=== PATIENT | female | born 1965 | race Two or more races ===

== ENCOUNTER 2023-01-27 13:49 | Inpatient (IN) | payer MEDICAID, OTHER ==
[~2023-01-27] VITALS: Ht 165.1 cm; Wt 86.0 kg
[2023-01-27] MEDS ORDERED: ONDANSETRON HCL 4 MG/2 ML VIAL IV ONE ×2 (14:00→16:00)
[2023-01-27] MEDS ORDERED: SODIUM CHLORIDE 0.9% 1,000 ML IV ONE (14:00)
[2023-01-27] MEDS ORDERED: LORazepam 2MG/ML-1ML VIAL IV ONE (14:15)
[2023-01-27 14:34] LABS: Basophils # (auto) 0 10 ^3/uL (0-0.2); Basophils % (auto) 0.2 % (0.0-2.0); Eosinophils # (auto) 0 10 ^3/uL (0-0.8); Eosinophils % (auto) 0.1 % (0.0-7.0); Hematocrit 38.1 % (36.0-46.0); Hemoglobin 12.3 g/dL (12.2-16.2); Lymphocytes # (auto) 2.2 10 ^3/uL (0.4-5.4); Lymphocytes % (auto) 14.6 % (10.0-50.0); Mean Corpuscular Hgb Conc. 32.3 g/dL (32.0-36.0); Mean Corpuscular Volume 86.7 fL (80.0-100.0); Monocytes # (auto) 0.4 10 ^3/uL (0-1.3); Monocytes % (auto) 2.6 % (0.0-12.0); Neutrophils # (auto) 12.6 10 ^3/uL (1.6-8.6); Neutrophils % (auto) 82.5 % (37.0-80.0); Red Cell Distribution Width 14.7 % (11.8-14.3); White Blood Cell 15.4 10^3/uL (4.4-10.8)
[2023-01-27 14:39] VITALS: PULSE 105; RESP 20; O2SAT 100
[2023-01-27 14:57] LABS: Alanine Aminotransferase 13 U/L (7-40); Albumin 4.7 g/dL (3.2-4.8); Alkaline Phosphatase 138 U/L (46-116); Anion Gap 12.4 (5-15); Aspartate Aminotransferase 30 U/L (13-40); BUN/Creatinine Ratio 9.8 (10.0-20.0); Bilirubin, Total 0.6 mg/dL (0.2-1.0); Blood Urea Nitrogen 16 mg/dL (9-23); Calcium 11.3 mg/dL (8.7-10.4); Carbon Dioxide 20.6 mmol/L (20-30); Chloride 105 mmol/L (98-107); Glucose 356 mg/dL (74-106); Lipase 47 U/L (12-53); Magnesium 1.9 mg/dL (1.6-2.6); Potassium 3.3 mmol/L (3.5-5.1); Sodium 138 mmol/L (136-145); Total Protein 7.3 g/dL (5.7-8.2)
[2023-01-27] MEDS ORDERED: POTASSIUM CHL 20MEQ/100ML 100 ML IV ONE (16:00)
[2023-01-27] MEDS ORDERED: DEXTROSE (50%) 50ML SYRG IV PRN (17:15)
[2023-01-27] MEDS ORDERED: metroNIDAZOLE 500MG/100ML 100 ML IV ONE (17:15)
[2023-01-27] MEDS ORDERED: HYDROcodone-ACET 5/325MG TAB PO PRN (17:15)
[2023-01-27] MEDS ORDERED: ACETAMINOPHEN 325 MG TAB PO PRN (17:15)
[2023-01-27] MEDS ORDERED: KETOROLAC TROMETH 30 MG/ML 1ML VIAL IV ONE (17:15)
[2023-01-27] MEDS ORDERED: ONDANSETRON HCL 4 MG/2 ML VIAL IV PRN (17:15)
[2023-01-27] MEDS ORDERED: NITROGLYCERIN 0.4 MG SL TAB SL PRN (17:15)
[2023-01-27] MEDS ORDERED: MORPHINE SULFATE INJ 2 MG/ml SYRG IV PRN (17:15)
[2023-01-27] MEDS ORDERED: cefTRIAXone 1GM/50ML D5W 50 ML IV ONE (17:15)
[2023-01-27] MEDS ORDERED: PANTOPRAZOLE 40 MG/10 ML VIAL INJ IV ONE (17:15)
[2023-01-27] MEDS ORDERED: IRBE300T43 PO (17:23)
[2023-01-27] MEDS ORDERED: RIV15T PO (17:23)
[2023-01-27] MEDS ORDERED: AMLO1TAB23 PO (17:23)
[2023-01-27] MEDS ORDERED: ATEN25TA PO (17:23)
[2023-01-27] MEDS ORDERED: METO-517 PO (17:23)
[2023-01-27] MEDS ORDERED: PRAV20TA3 PO (17:23)
[2023-01-27] MEDS ORDERED: diphenhdrAMINE HCL 50 MG/1 ML VL ONE (17:58)
[2023-01-27] MEDS ORDERED: diphenhdrAMINE HCL 50 MG/1 ML VL IV ONE (18:00)
[2023-01-27 19:50] LABS: Urine Bacteria FEW /hpf (None Seen); Urine Blood Negative /uL (Negative); Urine Clarity HAZY (Clear); Urine Color Colorless (Yellow); Urine Protein, UAD Negative (Negative); Urine Urobilinogen Normal (Negative); Urine WBC <1 /hpf (0 - 5)
[2023-01-27 19:51] LABS: Lactic Acid w/Reflex 5.5 mmol/L (0.4-2.0)
[2023-01-27 19:53] LABS: Amphetamine Screen, Urine Neg (NEGATIVE); Barbiturate Scree,Urine Neg (NEGATIVE); Benzodiazephine Screen, Urine Neg (NEGATIVE); Cocaine Screen, Urine Neg (NEGATIVE)
[2023-01-27 19:54] LABS: Cannabinoid Screen, Urine Pos (NEGATIVE); Opiate Scree,Urine Neg (NEGATIVE); Phencyclidine Screen, Urine Neg (NEGATIVE)
[2023-01-27] MEDS: PROMETHAZINE HCL 25 MG/ML 1ML IV PRN (19:56)
[2023-01-27 20:15] VITALS: PULSE 117; RESP 23; O2SAT 98
[2023-01-27] MEDS: SODIUM CHLORIDE 0.9% 1,000 ML IV SCH (20:16)
[2023-01-27] MEDS: MORPHINE SULFATE INJ 2 MG/ml SYRG IV PRN (20:17)
[2023-01-27] MEDS: hydrALAZINE HCL 20 MG/ML VL IV PRN (20:17)
[2023-01-27] MEDS: metroNIDAZOLE 500MG/100ML 100 ML IV SCH (22:00)
[2023-01-27] MEDS ORDERED: TEMAZEPAM 15 MG CAP PO PRN (23:30)
[2023-01-27] MEDS: ACCU-CHEK COMFORT CURVE STRIP VI SCH (23:47)
[2023-01-27] MEDS: InsuLIN REG 1unit/0.01ml Soln (100units/ml) SC SCH (23:49)
[2023-01-28] VITALS (7 sets, daily range): BP systolic 122–175; BP diastolic 76–95; PULSE 63–131; RESP 16–20; TEMP 98.1–98.8; O2SAT 96–100
[2023-01-28] MEDS: SODIUM CHLORIDE 0.9% 1,000 ML IV SCH ×3 (03:15→11:52)
[2023-01-28] MEDS: metroNIDAZOLE 500MG/100ML 100 ML IV SCH ×3 (05:56→22:35)
[2023-01-28 06:45] LABS: Basophils # (auto) 0 10 ^3/uL (0-0.2); Basophils % (auto) 0.1 % (0.0-2.0); Eosinophils # (auto) 0 10 ^3/uL (0-0.8); Hematocrit 38.2 % (36.0-46.0); Hemoglobin 12.1 g/dL (12.2-16.2); Lymphocytes # (auto) 1.5 10 ^3/uL (0.4-5.4); Lymphocytes % (auto) 11.8 % (10.0-50.0); Mean Corpuscular Hemoglobin 27.3 pg (28.0-32.0); Mean Corpuscular Hgb Conc. 31.6 g/dL (32.0-36.0); Mean Corpuscular Volume 86.3 fL (80.0-100.0); Neutrophils % (auto) 80.1 % (37.0-80.0); Nucleated Red Blood Cells % 0.1 %; Red Blood Cells 4.43 10^6/uL (4.0-5.20); Red Cell Distribution Width 14.6 % (11.8-14.3); White Blood Cell 12.4 10^3/uL (4.4-10.8)
[2023-01-28 06:48] LABS: Albumin 4.8 g/dL (3.2-4.8); Alkaline Phosphatase 123 U/L (46-116); Anion Gap 11.6 (5-15); Aspartate Aminotransferase 13 U/L (13-40); BUN/Creatinine Ratio 9.4 (10.0-20.0); Blood Urea Nitrogen 13 mg/dL (9-23); Calcium 10.8 mg/dL (8.7-10.4); Carbon Dioxide 23.4 mmol/L (20-30); Chloride 104 mmol/L (98-107); Glucose 226 mg/dL (74-106); Potassium 3.6 mmol/L (3.5-5.1); Sodium 139 mmol/L (136-145); Total Protein 7.5 g/dL (5.7-8.2)
[2023-01-28] MEDS: ACCU-CHEK COMFORT CURVE STRIP VI SCH ×4 (06:56→21:48)
[2023-01-28 06:57] LABS: Alanine Aminotransferase < 9 U/L (7-40)
[2023-01-28] MEDS: InsuLIN REG 1unit/0.01ml Soln (100units/ml) SC SCH ×3 (06:57→18:25)
[2023-01-28 07:28] LABS: Bilirubin, Total 0.7 mg/dL (0.2-1.0)
[2023-01-28] MEDS ORDERED: cefTRIAXone 1GM/50ML D5W 50 ML IV SCH (09:00)
[2023-01-28] MEDS: PROMETHAZINE HCL 25 MG/ML 1ML IV PRN ×3 (09:13→23:57)
[2023-01-28] MEDS: MORPHINE SULFATE INJ 2 MG/ml SYRG IV PRN (09:14)
[2023-01-28] MEDS ORDERED: PROMETHAZINE HCL 25 MG/ML 1ML ONE (09:59)
[2023-01-28] MEDS ORDERED: hydrALAZINE HCL 20 MG/ML VL IV ONE (10:00)
[2023-01-28] MEDS ORDERED: ENOXAPARIN SOD 40 MG/0.4 ML SYRINGE SC SCH (10:00)
[2023-01-28] MEDS: PANTOPRAZOLE 40 MG/10 ML VIAL INJ IV SCH (11:18)
[2023-01-28] MEDS: ENOXAPARIN SOD 80 MG/0.8ML SYRINGE SC SCH (11:19)
[2023-01-28] MEDS: HYDROmorphone HCL 2 MG/ML VL/or syr IV PRN ×3 (11:21→22:35)
[2023-01-28] MEDS: ONDANSETRON HCL 4 MG/2 ML VIAL IV PRN ×2 (17:42→22:42)
[2023-01-28] MEDS: hydrALAZINE HCL 20 MG/ML VL IV PRN ×2 (17:43→22:34)
[2023-01-28] MEDS: SUCRALFATE 1 GM/10 ML ORAL SUSP PO SCH (17:53)
[2023-01-28] MEDS: METOPROLOL TARTRATE 1MG/1ML-5ML VIAL IV PRN (20:24)
[2023-01-28] MEDS ORDERED: ATENOLOL 25 MG TAB PO ONE (20:30)
[2023-01-28] MEDS ORDERED: DEXTROSE (50%) 50ML SYRG IV PRN (20:30)
[2023-01-28] MEDS ORDERED: amLODIPine BESYLATE 5 MG TAB PO ONE (20:30)
[2023-01-28] MEDS ORDERED: InsuLIN REG 1unit/0.01ml Soln (100units/ml) SC SCH ×2 (22:00)
[2023-01-29] VITALS (8 sets, daily range): BP systolic 122–168; BP diastolic 63–98; PULSE 99–136; RESP 19–20; TEMP 97.5–98.2; O2SAT 94–99
[2023-01-29 00:04] LABS: Basophils # (auto) 0 10 ^3/uL (0-0.2); Basophils % (auto) 0.2 % (0.0-2.0); Eosinophils # (auto) 0 10 ^3/uL (0-0.8); Hematocrit 38.4 % (36.0-46.0); Hemoglobin 12.6 g/dL (12.2-16.2); Lymphocytes # (auto) 1.4 10 ^3/uL (0.4-5.4); Lymphocytes % (auto) 8.1 % (10.0-50.0); Mean Corpuscular Hemoglobin 28.4 pg (28.0-32.0); Mean Corpuscular Hgb Conc. 32.7 g/dL (32.0-36.0); Mean Corpuscular Volume 86.8 fL (80.0-100.0); Monocytes # (auto) 0.8 10 ^3/uL (0-1.3); Monocytes % (auto) 4.6 % (0.0-12.0); Neutrophils # (auto) 14.7 10 ^3/uL (1.6-8.6); Neutrophils % (auto) 87.1 % (37.0-80.0); Red Blood Cells 4.42 10^6/uL (4.0-5.20); Red Cell Distribution Width 15.4 % (11.8-14.3); White Blood Cell 16.8 10^3/uL (4.4-10.8)
[2023-01-29] MEDS ORDERED: dilTIAZem 25 MG/5 ML VIAL IV ONE (00:15)
[2023-01-29 00:16] LABS: INR 0.98 (0.9-1.15); Partial Thromboplastin Time 23.1 SEC (24.5-34.5); Prothrombin Time 10.3 sec (9.3-11.8)
[2023-01-29 00:33] LABS: Albumin 4.7 g/dL (3.2-4.8); Alkaline Phosphatase 122 U/L (46-116); Amylase 426 U/L (30-118); Aspartate Aminotransferase 9 U/L (13-40); BUN/Creatinine Ratio 8.5 (10.0-20.0); Blood Urea Nitrogen 13 mg/dL (9-23); Chloride 104 mmol/L (98-107); Glucose 289 mg/dL (74-106); Lipase 216 U/L (12-53); Magnesium 1.7 mg/dL (1.6-2.6); Potassium 3.3 mmol/L (3.5-5.1); Sodium 137 mmol/L (136-145)
[2023-01-29 00:34] LABS: Bilirubin, Total 0.7 mg/dL (0.2-1.0); Total Protein 7.7 g/dL (5.7-8.2)
[2023-01-29 00:38] LABS: Alanine Aminotransferase < 9 U/L (7-40)
[2023-01-29] MEDS: SODIUM CHLORIDE 0.9% 1,000 ML IV SCH ×3 (02:15→18:15)
[2023-01-29 03:05] LABS: Triglycerides 263 mg/dL (< 150)
[2023-01-29] MEDS: METOPROLOL TARTRATE 1MG/1ML-5ML VIAL IV PRN (04:37)
[2023-01-29] MEDS: PROMETHAZINE HCL 25 MG/ML 1ML IV PRN ×3 (04:38→20:41)
[2023-01-29] MEDS: HYDROmorphone HCL 2 MG/ML VL/or syr IV PRN ×5 (05:00→23:44)
[2023-01-29] MEDS: hydrALAZINE HCL 20 MG/ML VL IV PRN ×2 (05:09→14:37)
[2023-01-29] MEDS: ONDANSETRON HCL 4 MG/2 ML VIAL IV PRN ×3 (05:09→23:43)
[2023-01-29] MEDS: SUCRALFATE 1 GM/10 ML ORAL SUSP PO SCH ×3 (05:22→19:42)
[2023-01-29] MEDS: metroNIDAZOLE 500MG/100ML 100 ML IV SCH ×3 (05:22→21:43)
[2023-01-29] MEDS: ACCU-CHEK COMFORT CURVE STRIP VI SCH ×3 (05:59→19:46)
[2023-01-29] MEDS: InsuLIN REG 1unit/0.01ml Soln (100units/ml) SC SCH ×3 (05:59→19:54)
[2023-01-29] MEDS ORDERED: POTASSIUM CHL 20 Meq TABLET PO ONE (09:00)
[2023-01-29] MEDS ORDERED: ATENOLOL 25 MG TAB PO SCH (10:00)
[2023-01-29] MEDS: PANTOPRAZOLE 40 MG/10 ML VIAL INJ IV SCH (10:00)
[2023-01-29 10:16] LABS: Basophils # (auto) 0.1 10 ^3/uL (0-0.2); Basophils % (auto) 0.3 % (0.0-2.0); Eosinophils # (auto) 0 10 ^3/uL (0-0.8); Eosinophils % (auto) 0.1 % (0.0-7.0); Hematocrit 42.5 % (36.0-46.0); Hemoglobin 13.6 g/dL (12.2-16.2); Lymphocytes # (auto) 1.8 10 ^3/uL (0.4-5.4); Lymphocytes % (auto) 8.3 % (10.0-50.0); Mean Corpuscular Hemoglobin 28.4 pg (28.0-32.0); Mean Corpuscular Volume 88.9 fL (80.0-100.0); Monocytes # (auto) 1.5 10 ^3/uL (0-1.3); Monocytes % (auto) 7.3 % (0.0-12.0); Neutrophils # (auto) 17.9 10 ^3/uL (1.6-8.6); Nucleated Red Blood Cells % 0.1 %; Red Blood Cells 4.78 10^6/uL (4.0-5.20); Red Cell Distribution Width 15.3 % (11.8-14.3); White Blood Cell 21.3 10^3/uL (4.4-10.8)
[2023-01-29] MEDS: amLODIPine BESYLATE 5 MG TAB PO SCH (10:55)
[2023-01-29] MEDS: ATENOLOL 25 MG TAB PO SCH ×2 (10:55→21:45)
[2023-01-29] MEDS: ENOXAPARIN SOD 80 MG/0.8ML SYRINGE SC SCH (11:03)
[2023-01-29 11:49] LABS: Albumin 4.8 g/dL (3.2-4.8); Alkaline Phosphatase 111 U/L (46-116); Anion Gap 14.7 (5-15); Aspartate Aminotransferase 11 U/L (13-40); BUN/Creatinine Ratio 11.2 (10.0-20.0); Bilirubin, Total 0.8 mg/dL (0.2-1.0); Blood Urea Nitrogen 20 mg/dL (9-23); Calcium 11.1 mg/dL (8.5-10.1); Carbon Dioxide 21.3 mmol/L (20-30); Chloride 102 mmol/L (98-107); Cholesterol 260 mg/dL (< 200); Glucose 308 mg/dL (74-106); HDL Cholesterol 49 mg/dL (40-59); LDL Cholesterol 160 mg/dL (< 100); Magnesium 1.8 mg/dL (1.6-2.6); Potassium 3.3 mmol/L (3.5-5.1); Sodium 138 mmol/L (136-145); Triglycerides 246 mg/dL (< 150)
[2023-01-29 11:50] LABS: Alanine Aminotransferase < 9 U/L (7-40); Total Protein 7.7 g/dL (5.7-8.2)
[2023-01-29 12:25] LABS: Lipase 478 U/L (12-53)
[2023-01-29 12:55] LABS: Protein, Urine 105.4 mg/dL (0.0-11.9)
[2023-01-29 13:06] LABS: Creatinine, Urine 363.63 mg/dL (30.0-125.0); Urine Protein/Creatinine Ratio 0.29
[2023-01-29] MEDS: CEFEPIME 2GM/50ML NS 50 ML IV SCH ×2 (14:37→23:56)
[2023-01-29] MEDS ORDERED: TPN PER PHARMACY 0 ML IV SCH (18:00)
[2023-01-29] MEDS ORDERED: POTASSIUM CHL 20MEQ/100ML 100 ML IV ONE (18:15)
[2023-01-29] MEDS ORDERED: AMINO ACID INFUSION IN D10W 1,000 ML IV NR (20:00)
[2023-01-29] MEDS ORDERED: DEXTROSE (50%) 50ML SYRG IV SCH (20:00)
[2023-01-30] VITALS (7 sets, daily range): BP systolic 131–166; BP diastolic 77–103; PULSE 90–99; RESP 19–20; TEMP 98.2–98.7; O2SAT 95–100
[2023-01-30] MEDS: InsuLIN REG 1unit/0.01ml Soln (100units/ml) SC SCH ×4 (00:08→20:10)
[2023-01-30] MEDS: SODIUM CHLORIDE 0.9% 1,000 ML IV SCH ×3 (02:15→21:15)
[2023-01-30] MEDS: PROMETHAZINE HCL 25 MG/ML 1ML IV PRN (03:54)
[2023-01-30] MEDS: HYDROmorphone HCL 2 MG/ML VL/or syr IV PRN ×4 (04:02→21:07)
[2023-01-30] MEDS: metroNIDAZOLE 500MG/100ML 100 ML IV SCH ×3 (06:19→21:14)
[2023-01-30] MEDS: ONDANSETRON HCL 4 MG/2 ML VIAL IV PRN ×3 (06:19→21:04)
[2023-01-30] MEDS: ACCU-CHEK COMFORT CURVE STRIP VI SCH ×5 (06:30→23:55)
[2023-01-30 06:47] LABS: Basophils # (auto) 0.1 10 ^3/uL (0-0.2); Basophils % (auto) 0.8 % (0.0-2.0); Eosinophils # (auto) 0 10 ^3/uL (0-0.8); Eosinophils % (auto) 0.3 % (0.0-7.0); Hematocrit 35.8 % (36.0-46.0); Hemoglobin 12.1 g/dL (12.2-16.2); Lymphocytes # (auto) 0.6 10 ^3/uL (0.4-5.4); Lymphocytes % (auto) 4.1 % (10.0-50.0); Mean Corpuscular Hemoglobin 28.7 pg (28.0-32.0); Mean Corpuscular Hgb Conc. 33.9 g/dL (32.0-36.0); Mean Corpuscular Volume 84.7 fL (80.0-100.0); Monocytes # (auto) 0.9 10 ^3/uL (0-1.3); Monocytes % (auto) 5.5 % (0.0-12.0); Neutrophils # (auto) 13.9 10 ^3/uL (1.6-8.6); Neutrophils % (auto) 89.3 % (37.0-80.0); Red Blood Cells 4.22 10^6/uL (4.0-5.20); Red Cell Distribution Width 14.9 % (11.8-14.3); White Blood Cell 15.5 10^3/uL (4.4-10.8)
[2023-01-30] MEDS: SUCRALFATE 1 GM/10 ML ORAL SUSP PO SCH ×3 (06:47→17:00)
[2023-01-30 06:56] LABS: Alkaline Phosphatase 95 U/L (46-116); Anion Gap 5.9 (5-15); Aspartate Aminotransferase 12 U/L (13-40); BUN/Creatinine Ratio 14.2 (10.0-20.0); Blood Urea Nitrogen 19 mg/dL (9-23); Calcium 10.3 mg/dL (8.5-10.1); Carbon Dioxide 24.1 mmol/L (20-30); Chloride 103 mmol/L (98-107); Glucose 198 mg/dL (74-106); Magnesium 1.6 mg/dL (1.6-2.6); Potassium 3.5 mmol/L (3.5-5.1); Triglycerides 238 mg/dL (< 150)
[2023-01-30 06:57] LABS: Albumin 4.3 g/dL (3.2-4.8); Phosphorus 2.3 mg/dL (2.4-5.1); Total Protein 7.1 g/dL (5.7-8.2)
[2023-01-30 06:58] LABS: Alanine Aminotransferase < 9 U/L (7-40); Sodium 133 mmol/L (136-145)
[2023-01-30 07:13] LABS: Lipase 150 U/L (12-53)
[2023-01-30 09:07] LABS: Anti-Centromere B Antibody <0.2 AI (0.0-0.9); Anti-Jo-1 Antibody <0.2 AI (0.0-0.9); Anti-dsDNA Antibody 1 IU/mL (0-9); Antichromatin Antibody <0.2 AI (0.0-0.9); Antiscleroderma-70 Antibody 0.3 AI (0.0-0.9); RNP Antibody <0.2 AI (0.0-0.9); Sjogren's Anti-SS-A Antibody <0.2 AI (0.0-0.9); Sjogren's Anti-SS-B Antibody <0.2 AI (0.0-0.9); Smith Antibody <0.2 AI (0.0-0.9)
[2023-01-30] MEDS: ENOXAPARIN SOD 80 MG/0.8ML SYRINGE SC SCH (10:55)
[2023-01-30] MEDS: PANTOPRAZOLE 40 MG/10 ML VIAL INJ IV SCH ×2 (10:55→21:08)
[2023-01-30] MEDS ORDERED: POTASSIUM PHOSPHATE 22 MEQ in SODIUM CHL 0.9% 100 ML IV ONE (11:00)
[2023-01-30] MEDS ORDERED: MAGNESIUM SULFATE 1GM/100ML 100 ML IV ONE (11:00)
[2023-01-30] MEDS: amLODIPine BESYLATE 5 MG TAB PO SCH ×2 (11:06→11:07)
[2023-01-30] MEDS: ATENOLOL 25 MG TAB PO SCH ×2 (11:07→21:28)
[2023-01-30] MEDS: CEFEPIME 2GM/50ML NS 50 ML IV SCH ×2 (12:48→23:53)
[2023-01-30] MEDS ORDERED: TPN PER PHARMACY IV NR ×9 (20:00)
[2023-01-30] MEDS ORDERED: ENOXAPARIN SOD 80 MG/0.8ML SYRINGE SC SCH (22:00)
[2023-01-30] MEDS: hydrALAZINE HCL 20 MG/ML VL IV PRN (22:31)
[2023-01-31] VITALS (7 sets, daily range): BP systolic 108–155; BP diastolic 61–89; PULSE 71–85; RESP 17–20; TEMP 97.5–98.4; O2SAT 95–100
[2023-01-31] MEDS: InsuLIN REG 1unit/0.01ml Soln (100units/ml) SC SCH ×5 (00:01→23:21)
[2023-01-31] MEDS: HYDROmorphone HCL 2 MG/ML VL/or syr IV PRN ×5 (00:14→19:30)
[2023-01-31] MEDS ORDERED: dilTIAZem 25 MG/5 ML VIAL IV ONE (00:30)
[2023-01-31] MEDS: ONDANSETRON HCL 4 MG/2 ML VIAL IV PRN ×3 (03:57→16:03)
[2023-01-31] MEDS: metroNIDAZOLE 500MG/100ML 100 ML IV SCH ×3 (05:23→23:06)
[2023-01-31] MEDS: ACCU-CHEK COMFORT CURVE STRIP VI SCH ×4 (05:23→23:24)
[2023-01-31] MEDS: SUCRALFATE 1 GM/10 ML ORAL SUSP PO SCH ×3 (05:39→17:15)
[2023-01-31] MEDS ORDERED: INSULIN LANTUS (GLARGINE) 1 /0.01ml (100units/ml) SC ONE (08:00)
[2023-01-31 08:57] LABS: Basophils # (auto) 0.1 10 ^3/uL (0-0.2); Basophils % (auto) 0.7 % (0.0-2.0); Eosinophils # (auto) 0.1 10 ^3/uL (0-0.8); Eosinophils % (auto) 1.4 % (0.0-7.0); Hematocrit 32.6 % (36.0-46.0); Hemoglobin 11.1 g/dL (12.2-16.2); Lymphocytes # (auto) 1.4 10 ^3/uL (0.4-5.4); Lymphocytes % (auto) 13.5 % (10.0-50.0); Mean Corpuscular Volume 85.3 fL (80.0-100.0); Monocytes # (auto) 0.8 10 ^3/uL (0-1.3); Monocytes % (auto) 8.1 % (0.0-12.0); Neutrophils # (auto) 7.9 10 ^3/uL (1.6-8.6); Neutrophils % (auto) 76.3 % (37.0-80.0); Nucleated Red Blood Cells % 0.1 %; Red Blood Cells 3.82 10^6/uL (4.0-5.20); Red Cell Distribution Width 14.6 % (11.8-14.3); White Blood Cell 10.3 10^3/uL (4.4-10.8)
[2023-01-31 09:17] LABS: Albumin 3.8 g/dL (3.2-4.8); Alkaline Phosphatase 78 U/L (46-116); Anion Gap 4 (5-15); Aspartate Aminotransferase < 8 U/L (13-40); BUN/Creatinine Ratio 13.2 (10.0-20.0); Blood Urea Nitrogen 15 mg/dL (9-23); Calcium 9.6 mg/dL (8.5-10.1); Carbon Dioxide 28 mmol/L (20-30); Chloride 104 mmol/L (98-107); Glucose 155 mg/dL (74-106); Magnesium 1.8 mg/dL (1.6-2.6); Phosphorus 2.2 mg/dL (2.4-5.1); Potassium 3.1 mmol/L (3.5-5.1); Sodium 136 mmol/L (136-145)
[2023-01-31 09:18] LABS: Bilirubin, Total 0.7 mg/dL (0.2-1.0)
[2023-01-31 09:25] LABS: Alanine Aminotransferase < 9 U/L (7-40)
[2023-01-31 09:29] LABS: Lipase 72 U/L (12-53)
[2023-01-31] MEDS ORDERED: POTASSIUM PHOSPHATE 44 MEQ in D5W 5% 250 ML IV ONE (09:45)
[2023-01-31] MEDS ORDERED: INSULIN LANTUS (GLARGINE) 1 /0.01ml (100units/ml) SC SCH (10:00)
[2023-01-31] MEDS ORDERED: ENOXAPARIN SOD 80 MG/0.8ML SYRINGE SC SCH (10:00)
[2023-01-31 10:06] LABS: Cancer Antigen (CA) 125 8.6 U/mL (0.0-38.1)
[2023-01-31] MEDS: INSULIN LANTUS (GLARGINE) 1 /0.01ml (100units/ml) SC SCH (10:07)
[2023-01-31] MEDS: PANTOPRAZOLE 40 MG/10 ML VIAL INJ IV SCH ×2 (10:09→23:05)
[2023-01-31] MEDS: amLODIPine BESYLATE 5 MG TAB PO SCH (10:10)
[2023-01-31] MEDS: ATENOLOL 25 MG TAB PO SCH ×2 (10:10→23:05)
[2023-01-31] MEDS: SODIUM CHLORIDE 0.9% 1,000 ML IV SCH ×2 (10:30→20:52)
[2023-01-31] MEDS: CEFEPIME 2GM/50ML NS 50 ML IV SCH (12:12)
[2023-01-31] MEDS ORDERED: ERGOCALCIFEROL 50,000 UNIT(1.25MG) CAP PO SCH (13:30)
[2023-01-31] MEDS: PROMETHAZINE HCL 25 MG/ML 1ML IV PRN (18:48)
[2023-01-31] MEDS ORDERED: TPN PER PHARMACY IV NR ×10 (20:00)
[2023-01-31] MEDS ORDERED: PROMETHAZINE HCL 25 MG/ML 1ML IV PRN (20:30)
[2023-01-31] MEDS ORDERED: HYDROcodone-ACET 5/325MG TAB PO PRN (20:30)
[2023-01-31] MEDS ORDERED: HYDROcodone-ACET 10/325MG TAB PO PRN (20:30)
[2023-02-01] MEDS: CEFEPIME 2GM/50ML NS 50 ML IV SCH (00:33)
[2023-02-01 04:56] VITALS: BP 104/48; PULSE 85; RESP 19; TEMP 97.7; O2SAT 93
[2023-02-01] MEDS: metroNIDAZOLE 500MG/100ML 100 ML IV SCH (05:19)
[2023-02-01] MEDS: SUCRALFATE 1 GM/10 ML ORAL SUSP PO SCH ×3 (05:24→18:15)
[2023-02-01] MEDS: ACCU-CHEK COMFORT CURVE STRIP VI SCH ×3 (05:27→18:16)
[2023-02-01] MEDS: InsuLIN REG 1unit/0.01ml Soln (100units/ml) SC SCH ×3 (05:40→18:16)
[2023-02-01 06:12] LABS: Albumin 3.9 g/dL (3.2-4.8); Alkaline Phosphatase 28 U/L (46-116); Anion Gap 7 (5-15); Aspartate Aminotransferase 10 U/L (13-40); BUN/Creatinine Ratio 11.6 (10.0-20.0); Blood Urea Nitrogen 8 mg/dL (9-23); Calcium 8.5 mg/dL (8.5-10.1); Carbon Dioxide 23 mmol/L (20-30); Chloride 112 mmol/L (98-107); Glucose 158 mg/dL (74-106); Magnesium 1.8 mg/dL (1.6-2.6); Phosphorus 2.2 mg/dL (2.4-5.1); Potassium 3.8 mmol/L (3.5-5.1); Sodium 142 mmol/L (136-145); Triglycerides 42 mg/dL (< 150)
[2023-02-01 06:13] LABS: Alanine Aminotransferase 9 U/L (7-40); Bilirubin, Total 0.7 mg/dL (0.2-1.0); Total Protein 6.2 g/dL (5.7-8.2)
[2023-02-01 06:34] LABS: Lipase 53 U/L (12-53)
[2023-02-01] MEDS ORDERED: INSULIN LANTUS (GLARGINE) 1 /0.01ml (100units/ml) SC SCH (07:00)
[2023-02-01 07:46] LABS: Basophils # (auto) 0 10 ^3/uL (0-0.2); Basophils % (auto) 0.4 % (0.0-2.0); Eosinophils # (auto) 0 10 ^3/uL (0-0.8); Hematocrit 41.1 % (36.0-46.0); Hemoglobin 13.8 g/dL (12.2-16.2); Lymphocytes % (auto) 15.1 % (10.0-50.0); Mean Corpuscular Hemoglobin 30.1 pg (28.0-32.0); Mean Corpuscular Hgb Conc. 33.6 g/dL (32.0-36.0); Mean Corpuscular Volume 89.5 fL (80.0-100.0); Monocytes # (auto) 0.1 10 ^3/uL (0-1.3); Neutrophils # (auto) 5.7 10 ^3/uL (1.6-8.6); Neutrophils % (auto) 83.5 % (37.0-80.0); Nucleated Red Blood Cells % 0.3 %; Red Blood Cells 4.59 10^6/uL (4.0-5.20); Red Cell Distribution Width 13.3 % (11.8-14.3); White Blood Cell 6.9 10^3/uL (4.4-10.8)
[2023-02-01] MEDS: PANTOPRAZOLE 40 MG/10 ML VIAL INJ IV SCH ×2 (08:28→21:56)
[2023-02-01 08:30] VITALS: PULSE 74; PULSE 81; RESP 18; O2SAT 97
[2023-02-01] MEDS: ENOXAPARIN SOD 80 MG/0.8ML SYRINGE SC SCH ×2 (08:31→21:56)
[2023-02-01] MEDS: ATENOLOL 25 MG TAB PO SCH ×2 (08:31→21:55)
[2023-02-01] MEDS: amLODIPine BESYLATE 5 MG TAB PO SCH (08:32)
[2023-02-01] MEDS: INSULIN LANTUS (GLARGINE) 1 /0.01ml (100units/ml) SC SCH (08:34)
[2023-02-01] MEDS: SODIUM CHLORIDE 0.9% 1,000 ML IV SCH (09:00)
[2023-02-01] MEDS ORDERED: metroNIDAZOLE 500 MG TAB PO ONE (09:00)
[2023-02-01] MEDS ORDERED: POTASSIUM PHOSPHATE 22 MEQ in SODIUM CHL 0.9% 100 ML IV ONE ×2 (10:30→10:45)
[2023-02-01] MEDS ORDERED: POLYETHYLENE GLYCOL 17 GM PWDR PO ONE (11:15)
[2023-02-01] MEDS ORDERED: HYDROmorphone HCL 2 MG/ML VL/or syr IV ONE (11:15)
[2023-02-01] MEDS: CIPROFLOXACIN HCL 500 MG TAB PO SCH ×2 (12:22→21:54)
[2023-02-01 13:00] VITALS: BP 149/75; PULSE 74; RESP 18; TEMP 97.8; O2SAT 99
[2023-02-01] MEDS: metroNIDAZOLE 500 MG TAB PO SCH ×2 (14:16→21:55)
[2023-02-01 17:00] VITALS: BP 152/78; PULSE 75; RESP 18; TEMP 97.9; O2SAT 98
[2023-02-01] MEDS: hydrALAZINE HCL 20 MG/ML VL IV PRN (18:23)
[2023-02-01] MEDS ORDERED: SODIUM CHLORIDE 0.9% 1,000 ML IV ONE (19:30)
[2023-02-01] MEDS ORDERED: LORazepam 2MG/ML-1ML VIAL IV PRN (19:30)
[2023-02-01 20:00] VITALS: PULSE 86; RESP 18; O2SAT 100
[2023-02-01 20:11] LABS: Basophils # (auto) 0.1 10 ^3/uL (0-0.2); Basophils % (auto) 0.8 % (0.0-2.0); Eosinophils # (auto) 0.2 10 ^3/uL (0-0.8); Eosinophils % (auto) 1.7 % (0.0-7.0); Hematocrit 31.7 % (36.0-46.0); Hemoglobin 10.8 g/dL (12.2-16.2); Lymphocytes # (auto) 1.8 10 ^3/uL (0.4-5.4); Lymphocytes % (auto) 19.7 % (10.0-50.0); Mean Corpuscular Hemoglobin 29.1 pg (28.0-32.0); Mean Corpuscular Volume 85.4 fL (80.0-100.0); Monocytes # (auto) 0.7 10 ^3/uL (0-1.3); Monocytes % (auto) 7.4 % (0.0-12.0); Neutrophils # (auto) 6.3 10 ^3/uL (1.6-8.6); Neutrophils % (auto) 70.4 % (37.0-80.0); Red Blood Cells 3.71 10^6/uL (4.0-5.20); Red Cell Distribution Width 14.6 % (11.8-14.3); White Blood Cell 8.9 10^3/uL (4.4-10.8)
[2023-02-01 20:26] LABS: Alanine Aminotransferase 10 U/L (7-40); Albumin 3.7 g/dL (3.2-4.8); Alkaline Phosphatase 89 U/L (46-116); Anion Gap 7 (5-15); Aspartate Aminotransferase 15 U/L (13-40); BUN/Creatinine Ratio 10.8 (10.0-20.0); Bilirubin, Total 0.5 mg/dL (0.2-1.0); Blood Urea Nitrogen 11 mg/dL (9-23); Calcium 9.6 mg/dL (8.7-10.4); Carbon Dioxide 23 mmol/L (20-30); Chloride 106 mmol/L (98-107); Glucose 190 mg/dL (74-106); Potassium 3.4 mmol/L (3.5-5.1); Sodium 136 mmol/L (136-145); Total Protein 5.5 g/dL (5.7-8.2)
[2023-02-01 22:00] VITALS: BP 169/86; PULSE 87; RESP 18; TEMP 98.2; O2SAT 100
[2023-02-01] MEDS: ONDANSETRON HCL 4 MG/2 ML VIAL IV PRN (22:36)
[2023-02-02] VITALS (7 sets, daily range): BP systolic 160–171; BP diastolic 85–93; PULSE 79–88; RESP 14–18; TEMP 97.7–98.5; O2SAT 96–100
[2023-02-02] MEDS: ACCU-CHEK COMFORT CURVE STRIP VI SCH ×4 (01:46→17:33)
[2023-02-02] MEDS: InsuLIN REG 1unit/0.01ml Soln (100units/ml) SC SCH ×4 (01:48→17:32)
[2023-02-02 02:19] LABS: Urine Bacteria FEW /hpf (None Seen); Urine Blood Negative /uL (Negative); Urine Clarity Clear (Clear); Urine Color Colorless (Yellow); Urine Mucus FEW (None Seen); Urine Protein, UAD Negative (Negative); Urine Specific Gravity 1.008 (1.001-1.035); Urine Urobilinogen Normal (Negative); Urine WBC 6 /hpf (0 - 5)
[2023-02-02] MEDS: METOPROLOL TARTRATE 1MG/1ML-5ML VIAL IV PRN (04:15)
[2023-02-02] MEDS: ONDANSETRON HCL 4 MG/2 ML VIAL IV PRN ×2 (04:19→09:19)
[2023-02-02] MEDS: SODIUM CHLORIDE 0.9% 1,000 ML IV SCH (04:20)
[2023-02-02] MEDS: SUCRALFATE 1 GM/10 ML ORAL SUSP PO SCH (05:57)
[2023-02-02] MEDS: metroNIDAZOLE 500 MG TAB PO SCH (06:08)
[2023-02-02 07:03] LABS: Basophils # (auto) 0.1 10 ^3/uL (0-0.2); Basophils % (auto) 0.7 % (0.0-2.0); Eosinophils # (auto) 0.1 10 ^3/uL (0-0.8); Eosinophils % (auto) 0.5 % (0.0-7.0); Hematocrit 33.8 % (36.0-46.0); Hemoglobin 11.4 g/dL (12.2-16.2); Lymphocytes % (auto) 19.3 % (10.0-50.0); Mean Corpuscular Hemoglobin 28.4 pg (28.0-32.0); Mean Corpuscular Hgb Conc. 33.9 g/dL (32.0-36.0); Mean Corpuscular Volume 83.8 fL (80.0-100.0); Monocytes # (auto) 0.6 10 ^3/uL (0-1.3); Monocytes % (auto) 5.6 % (0.0-12.0); Neutrophils # (auto) 7.8 10 ^3/uL (1.6-8.6); Neutrophils % (auto) 73.9 % (37.0-80.0); Nucleated Red Blood Cells % 0.1 %; Red Blood Cells 4.03 10^6/uL (4.0-5.20); Red Cell Distribution Width 14.4 % (11.8-14.3); White Blood Cell 10.5 10^3/uL (4.4-10.8)
[2023-02-02 07:22] LABS: Albumin 4.2 g/dL (3.2-4.8); Alkaline Phosphatase 96 U/L (46-116); Anion Gap 6 (5-15); Aspartate Aminotransferase 13 U/L (13-40); BUN/Creatinine Ratio 6.6 (10.0-20.0); Blood Urea Nitrogen 7 mg/dL (9-23); Calcium 10.2 mg/dL (8.7-10.4); Carbon Dioxide 27 mmol/L (20-30); Chloride 103 mmol/L (98-107); Glucose 159 mg/dL (74-106); Magnesium 1.8 mg/dL (1.6-2.6); Potassium 3.2 mmol/L (3.5-5.1); Sodium 136 mmol/L (136-145)
[2023-02-02 07:23] LABS: Bilirubin, Total 0.6 mg/dL (0.2-1.0); Phosphorus 1.6 mg/dL (2.4-5.1); Total Protein 6.5 g/dL (5.7-8.2)
[2023-02-02 07:24] LABS: Alanine Aminotransferase < 9 U/L (7-40)
[2023-02-02] MEDS ORDERED: IOHEXOL 350 MG/ML 100ML IJ ONE (09:17)
[2023-02-02] MEDS: PANTOPRAZOLE 40 MG/10 ML VIAL INJ IV SCH ×2 (09:19→21:33)
[2023-02-02] MEDS: INSULIN LANTUS (GLARGINE) 1 /0.01ml (100units/ml) SC SCH (10:00)
[2023-02-02] MEDS ORDERED: MORPHINE SULFATE INJ 2 MG/ml SYRG IV PRN (10:30)
[2023-02-02] MEDS ORDERED: SODIUM CHLORIDE 0.9% 1,000 ML IV SCH (10:30)
[2023-02-02] MEDS: MAGNESIUM OXIDE 400 MG TAB PO ONE ×2 (10:30→12:30)
[2023-02-02] MEDS: POTASSIUM CHL 20 Meq TABLET PO ONE ×2 (10:30→12:23)
[2023-02-02] MEDS: NEUTRA-PHOS TABLET PO ONE ×2 (10:30→12:30)
[2023-02-02] MEDS ORDERED: POTASSIUM EFFERVESENT TAB 25 MEQ PO ONE (11:00)
[2023-02-02] MEDS ORDERED: POTASSIUM PHOSPHATE 44 MEQ in D5W 5% 250 ML IV ONE (11:00)
[2023-02-02] MEDS ORDERED: TPN PER PHARMACY 0 ML IV SCH (11:45)
[2023-02-02] MEDS: hydrALAZINE HCL 10 MG TAB PO SCH ×2 (12:00→18:00)
[2023-02-02] MEDS: CIPROFLOXACIN HCL 500 MG TAB PO SCH (12:23)
[2023-02-02] MEDS: ENOXAPARIN SOD 80 MG/0.8ML SYRINGE SC SCH ×2 (12:23→21:33)
[2023-02-02] MEDS: MORPHINE SULFATE INJ 2 MG/ml SYRG IV PRN ×2 (12:29→21:35)
[2023-02-02] MEDS: amLODIPine BESYLATE 5 MG TAB PO SCH (12:31)
[2023-02-02] MEDS: ATENOLOL 25 MG TAB PO SCH ×2 (12:32→21:34)
[2023-02-02] MEDS: D5W/ SOD CHL 0.9%/KCL 20MEQ 1,000 ML IV SCH (13:15)
[2023-02-02] MEDS ORDERED: LORazepam 2MG/ML-1ML VIAL IV PRN (13:45)
[2023-02-02] MEDS ORDERED: TPN PER PHARMACY IV NR ×7 (20:00)
[2023-02-03] VITALS (7 sets, daily range): BP systolic 111–141; BP diastolic 60–86; PULSE 67–86; RESP 14–18; TEMP 97.5–98.3; O2SAT 97–100
[2023-02-03] MEDS ORDERED: CATHFLO ACTIVASE (ALTEPLASE) 2 MG VIAL IV ONE ×2 (02:45)
[2023-02-03] MEDS: ACCU-CHEK COMFORT CURVE STRIP VI SCH ×4 (04:28→16:59)
[2023-02-03] MEDS: InsuLIN REG 1unit/0.01ml Soln (100units/ml) SC SCH ×4 (04:30→16:59)
[2023-02-03 05:57] LABS: Basophils # (auto) 0 10 ^3/uL (0-0.2); Basophils % (auto) 0.5 % (0.0-2.0); Eosinophils # (auto) 0.2 10 ^3/uL (0-0.8); Eosinophils % (auto) 1.7 % (0.0-7.0); Hematocrit 26.9 % (36.0-46.0); Lymphocytes # (auto) 2.4 10 ^3/uL (0.4-5.4); Lymphocytes % (auto) 25.6 % (10.0-50.0); Mean Corpuscular Hemoglobin 28.9 pg (28.0-32.0); Mean Corpuscular Hgb Conc. 33.4 g/dL (32.0-36.0); Mean Corpuscular Volume 86.4 fL (80.0-100.0); Monocytes # (auto) 0.8 10 ^3/uL (0-1.3); Monocytes % (auto) 8.4 % (0.0-12.0); Neutrophils % (auto) 63.8 % (37.0-80.0); Red Blood Cells 3.11 10^6/uL (4.0-5.20); Red Cell Distribution Width 14.3 % (11.8-14.3); White Blood Cell 9.3 10^3/uL (4.4-10.8)
[2023-02-03] MEDS: hydrALAZINE HCL 10 MG TAB PO SCH ×2 (06:00)
[2023-02-03 06:41] LABS: Albumin 3.2 g/dL (3.2-4.8); Alkaline Phosphatase 76 U/L (46-116); Anion Gap 6 (5-15); BUN/Creatinine Ratio 6.1 (10.0-20.0); Blood Urea Nitrogen 6 mg/dL (9-23); Calcium 8.9 mg/dL (8.7-10.4); Carbon Dioxide 24 mmol/L (20-30); Chloride 107 mmol/L (98-107); Glucose 120 mg/dL (74-106); Lipase 46 U/L (12-53); Magnesium 1.4 mg/dL (1.6-2.6); Sodium 137 mmol/L (136-145)
[2023-02-03 06:42] LABS: Aspartate Aminotransferase 11 U/L (13-40); Phosphorus 1.7 mg/dL (2.4-5.1)
[2023-02-03 06:49] LABS: Alanine Aminotransferase < 9 U/L (7-40)
[2023-02-03 06:50] LABS: Bilirubin, Total 0.6 mg/dL (0.2-1.0)
[2023-02-03 06:55] LABS: Triglycerides 115 mg/dL (< 150)
[2023-02-03] MEDS ORDERED: MAGNESIUM SULFATE 1GM/100ML 100 ML IV ONE (09:00)
[2023-02-03] MEDS: D5W/ SOD CHL 0.9%/KCL 20MEQ 1,000 ML IV SCH ×2 (09:15→19:02)
[2023-02-03] MEDS: ATENOLOL 25 MG TAB PO SCH ×2 (09:32→21:36)
[2023-02-03] MEDS: PANTOPRAZOLE 40 MG/10 ML VIAL INJ IV SCH ×2 (09:32→21:36)
[2023-02-03] MEDS: amLODIPine BESYLATE 5 MG TAB PO SCH (09:33)
[2023-02-03] MEDS: ENOXAPARIN SOD 80 MG/0.8ML SYRINGE SC SCH ×2 (09:33→21:36)
[2023-02-03] MEDS: INSULIN LANTUS (GLARGINE) 1 /0.01ml (100units/ml) SC SCH (09:47)
[2023-02-03] MEDS ORDERED: POTASSIUM PHOSPHATE 44 MEQ in D5W 5% 250 ML IV ONE ×2 (10:00)
[2023-02-03] MEDS: MAGNESIUM SULFATE 1GM/100ML 100 ML IV SCH ×2 (10:38→11:53)
[2023-02-03] MEDS ORDERED: TPN PER PHARMACY IV NR ×8 (20:00)
[2023-02-04] MEDS: ACCU-CHEK COMFORT CURVE STRIP VI SCH ×3 (00:04→11:40)
[2023-02-04] MEDS: InsuLIN REG 1unit/0.01ml Soln (100units/ml) SC SCH ×3 (00:05→11:40)
[2023-02-04 05:05] VITALS: BP 132/76; PULSE 74; RESP 18; TEMP 98.6; O2SAT 96
[2023-02-04 06:20] LABS: Basophils # (auto) 0 10 ^3/uL (0-0.2); Basophils % (auto) 0.4 % (0.0-2.0); Eosinophils # (auto) 0.2 10 ^3/uL (0-0.8); Eosinophils % (auto) 1.8 % (0.0-7.0); Hematocrit 29.1 % (36.0-46.0); Hemoglobin 9.9 g/dL (12.2-16.2); Lymphocytes # (auto) 2.3 10 ^3/uL (0.4-5.4); Lymphocytes % (auto) 22.8 % (10.0-50.0); Mean Corpuscular Hemoglobin 29.1 pg (28.0-32.0); Mean Corpuscular Volume 85.6 fL (80.0-100.0); Monocytes # (auto) 0.9 10 ^3/uL (0-1.3); Neutrophils # (auto) 6.7 10 ^3/uL (1.6-8.6); Nucleated Red Blood Cells % 0.1 %; Red Cell Distribution Width 14.3 % (11.8-14.3); White Blood Cell 10.2 10^3/uL (4.4-10.8)
[2023-02-04 06:42] LABS: Albumin 3.6 g/dL (3.2-4.8); Alkaline Phosphatase 90 U/L (46-116); Anion Gap 6 (5-15); Aspartate Aminotransferase 13 U/L (13-40); BUN/Creatinine Ratio 6.4 (10.0-20.0); Blood Urea Nitrogen 7 mg/dL (9-23); Calcium 9.8 mg/dL (8.7-10.4); Carbon Dioxide 26 mmol/L (20-30); Chloride 104 mmol/L (98-107); Glucose 112 mg/dL (74-106); Lipase 66 U/L (12-53); Magnesium 2.3 mg/dL (1.6-2.6); Potassium 3.4 mmol/L (3.5-5.1); Sodium 136 mmol/L (136-145)
[2023-02-04 06:43] LABS: Bilirubin, Total 0.4 mg/dL (0.2-1.0); Phosphorus 2.8 mg/dL (2.4-5.1); Total Protein 5.5 g/dL (5.7-8.2)
[2023-02-04 07:01] LABS: Alanine Aminotransferase < 9 U/L (7-40)
[2023-02-04 08:00] VITALS: O2SAT 100
[2023-02-04] MEDS: ATENOLOL 25 MG TAB PO SCH (08:38)
[2023-02-04] MEDS: PANTOPRAZOLE 40 MG/10 ML VIAL INJ IV SCH (08:38)
[2023-02-04] MEDS: amLODIPine BESYLATE 5 MG TAB PO SCH (08:39)
[2023-02-04] MEDS: INSULIN LANTUS (GLARGINE) 1 /0.01ml (100units/ml) SC SCH (08:51)
[2023-02-04] MEDS: ENOXAPARIN SOD 80 MG/0.8ML SYRINGE SC SCH (08:56)
[2023-02-04 09:00] VITALS: BP 160/89; PULSE 68; RESP 18; TEMP 98; O2SAT 100
[2023-02-04] MEDS ORDERED: SODIUM CHLORIDE 0.9% 1,000 ML IV SCH (09:30)
[2023-02-04] MEDS ORDERED: ENOXAPARIN SOD 80 MG/0.8ML SYRINGE SC SCH (10:00)
[2023-02-04] MEDS ORDERED: POTASSIUM CHL 20 Meq TABLET PO ONE (10:30)
[2023-02-04 13:31] VITALS: BP 160/89; PULSE 68; RESP 18; TEMP 36.7; O2SAT 98
[2023-02-04] MEDS ORDERED: INSU100I52 IJ (14:00)
[2023-02-04] MEDS ORDERED: INSLANTI SC (14:00)
[2023-02-04] MEDS ORDERED: PANC3000 PO (14:01)
[2023-02-04 18:06] LABS: Vitamin D 25-Hydroxy 14 ng/mL (.); Vitamin D-2 25-Hydroxy <1.0 ng/mL (.); Vitamin D-3 25-Hydroxy 14 ng/mL (.)
== END 2023-02-04 16:30 | disposition home or self-care (01) | DRG 435 ==
LOC: EDBD 13:49 → ER 13:49 → TELE 17:20 → TELE-WESTW 01-28 10:16
PROVIDERS: ADMIT Internal Medicine Geriatric Medicine; ATTEND Student in an Organized Health Care Education/Training Program
DX: C25.9 Malignant neoplasm of pancreas, unspecified (principal); K85.90 Acute pancreatitis without necrosis or infection, unspecified; I82.611 Acute embolism and thrombosis of superficial veins of right upper extremity; K86.1 Other chronic pancreatitis; E86.0 Dehydration; E87.6 Hypokalemia; E11.65 Type 2 diabetes mellitus with hyperglycemia; K29.80 Duodenitis without bleeding; F12.90 Cannabis use, unspecified, uncomplicated; N20.0 Calculus of kidney; E83.39 Other disorders of phosphorus metabolism; I12.9 Hypertensive chronic kidney disease with stage 1 through stage 4 chronic kidney disease, or unspecified chronic kidney disease; E11.22 Type 2 diabetes mellitus with diabetic chronic kidney disease; N18.9 Chronic kidney disease, unspecified; E83.42 Hypomagnesemia; E11.43 Type 2 diabetes mellitus with diabetic autonomic (poly)neuropathy; R00.0 Tachycardia, unspecified; R74.8 Abnormal levels of other serum enzymes; F41.9 Anxiety disorder, unspecified; K31.84 Gastroparesis; Z82.49 Family history of ischemic heart disease and other diseases of the circulatory system; Z83.3 Family history of diabetes mellitus; Z85.3 Personal history of malignant neoplasm of breast; Z86.718 Personal history of other venous thrombosis and embolism; Z90.12 Acquired absence of left breast and nipple; Z90.710 Acquired absence of both cervix and uterus
CPT/HCPCS: 36415; 36600; 71045; 71275; 74176; 74181; 76705; 80053; 80061; 80307; 81001; 82150; 82306; 82378; 82570; 82805; 82962; 83036; 83516; 83605; 83615; 83690; 83735; 83880; 83930; 83970; 84100; 84133; 84156; 84300; 84443; 84478; 84484; 85025; 85379; 85610; 85730; 86038; 86225; 86235; 86301; 86304; 87040; 93005; 93306; 93971; C9113; G0378; J0692; J0696; J1815; J1885; J2405; J3480; J3490; J7060